=== PATIENT | female | born 2005 | race Caucasian/White ===

== ENCOUNTER 2024-01-05 10:05 | Emergency (ER) | payer BC, SELFPAY ==
[2024-01-05 10:06] VITALS: BP 136/93; PULSE 83; RESP 16; TEMP 36.2; O2SAT 99; BMI 18.2
--- NOTE | 2024-01-05 10:20 | EDS_ITS ---
HPI History of Present Illness Chief Complaint: Headache Associated Symptoms/Injury Associated Symptoms: Positive for Numbness and Photophobia Narrative Narrative: 18-year-old female past medical history of POTS and migraine headaches presents with left-sided facial numbness and numbness of her left arm that began last night, and persisted into today. She relates history that she sees a neurologist and was diagnosed with migraines at a young age. She recently started a new medication for her headaches but did not take it today. She was visiting her boyfriend and his family, and developed a headache last evening that she rated about a 9 out of 10. It is associated with photophobia and phonophobia. She denies any nausea or vomiting, no diarrhea, no fevers or chills, but had paresthesias of her left face and left arm. That has improved. No weakness. PFSH PFSH Allergy/AdvReac Type Severity Reaction Status Date / Time lansoprazole (From Prevacid) Allergy Intermediate Rash Verified 01/05/24 10:08 ROS ROS ED ROS Narrative Constitutional: No fever, no chills. HEENT: No sore throat. No neck pain. No loss of vision. No rhinorrhea. Cardiovascular: No chest pain. No palpitations. No pedal edema. Respiratory: No cough, no shortness of breath. Abdominal: No abdominal pain. No nausea. No vomiting. Genitourinary: No dysuria. No hematuria. Musculoskeletal: No myalgias. No arthralgias. Neurologic: Positive daily headaches. No dizziness. No lightheadedness. Paresthesias of left face and left arm. Skin: No rash. No change in color. Psychiatric: No depression. No anxiety. EXAM Physical Exam Narrative Exam Narrative: Afebrile. Vital signs noted. HEENT: Normocephalic. Atraumatic. PERRL, EOMI. Neck soft and supple. No point tenderness or step off. Cardiovascular: Regular rate and rhythm. No murmurs, rubs, or gallops appreciated. Respiratory: No tachypnea. Lungs clear to auscultation bilaterally. Gastrointestinal: Abdomen soft, nontender, with normoactive bowel sounds. No rebound or guarding. Neurological: Awake. Alert. Nonfocal, nonlateralizing. Able to raise arms above head without difficulty. Biceps DTRs equal and symmetric. Skin: No rash. Normal color. No pallor. Musculoskeletal: No pedal edema. Full range of motion extremities. Const Vital Signs: 01/05/24 10:06 Temperature 97.1 F L Temperature Source Temporal Pulse Rate 83 Respiratory Rate 16 Blood Pressure 136/93 H Blood Pressure Mean 107 Pulse Ox 99 Oxygen Delivery Method Room Air MDM MDM MDM Narrative Medical decision making narrative: Differential diagnosis includes but not limited to atypical migraine versus electrolyte imbalance versus dehydration. I have low suspicion for Guillain- Nance? syndrome as a history and physical does not support this. Patient states that she gets daily headaches and is migraine type headaches once or twice a month. I do not feel that she requires CT scanning of the brain on an emergent basis. She has a normal neurological examination currently. I discussed with her IV medications and laboratory work and through shared decision making, this will be deferred. She is not tachycardic so I do not think that she requires IV fluids for her POTS. She was given sumatriptan hand 6 mg subcutaneously and reevaluated. Upon repeat evaluation at approximately 11:40 AM, she states that she is feeling markedly improved, her headache is almost gone/down to a 1, and she states that she is regaining feeling/lessening paresthesia of her left face and left arm. At this point in time, I feel she can be discharged to follow-up with her neurologist. Return instructions to the emergency department were reviewed. I do not feel she requires observation or transfer. Patient is agreeable to the plan. Disposition is discharged home in stable condition. History & Record Review Discussion w/independent historian: Patient and Significant other Discharge Plan Triage Chief Complaint: Headache ED Provider: Alverto Beltran Dx/Rx/DC Orders Clinical Impression: Atypical migraine, Paresthesia of left arm Instructions: ED, Migraine (Classical), ED Paraesthesias Primary Care Provider: Care Physician,No Primary Referrals: NOT,DEFINED [Non-Staff] - Activity Restrictions/Additional Instructions: Follow-up with your neurologist as soon as possible. Return with increasing numbness of face or arm, fever, difficulty breathing, new or worsening symptoms. Print Language: Marshallese Disposition Disposition: Home, Self Care
[2024-01-05] MEDS: SUMAtriptan 6 MG/0.5 ML Vial SC (10:29)
[2024-01-05 11:49] VITALS: BP 120/79; PULSE 68; RESP 16; TEMP 35.9; O2SAT 96
== END 2024-01-05 11:51 | disposition home or self-care (01) ==
PROVIDERS: Emergency Provider Emergency Medicine; Visit Provider Emergency Medicine
DX: G43.809 Other migraine, not intractable, without status migrainosus (principal); R20.2 Paresthesia of skin
CPT/HCPCS: 96372; 99282; J3030